=== PATIENT | female | born 1935 | race Caucasian/White ===

== ENCOUNTER 2022-02-10 21:33 | Inpatient (IN) | payer OTHER ==
[~2022-02-10 21:33] MED LIST: AMIODARONE HCL200 MG PO; ASPIR-LOW81 MG PO; ASPIRIN EC81 MG PO; CALCIUM600 MG PO; CENTRUM SILVER1 EAC1 PO; DESYREL 50 MG T50 MG PO; ELIQUIS 2.5 MG2.5 MG PO; FLAGYL500 MG PO; GLUCOPHAGE XR500 MG PO; JANUVIA100 MG PO; LEVAQUIN250 MG PO; LEXAPRO5 MG PO; LISINOPRIL-HCT1 EAC1 PO; LOPRESSOR 25 MG25 MG PO; NORVASC 5 MG TAB5 MG PO; PLAVIX 75 MG TA75 MG PO; PRAVASTATIN SOD10 MG PO; PRINIVIL5 MG PO; TENORMIN 50 MG50 MG PO; THERAGRAN TAB1 EA PO; VITAMIN B-121000 MC3 PO; VITAMIN D35000 UNI1 PO
[2022-02-10 22:05] LABS: HEMOGLOBIN 14.7 gm/dl (12.3-15.3); RED BLOOD COUNT 5.6 M/UL (4.00-5.10); WHITE BLOOD COUNT 26.5 K/UL (4.5-11.0)
[2022-02-10 22:32] LABS: BUN/CREATININE RATIO 21 (0-10)
== END 2022-02-11 01:30 | disposition short-term general hospital (02) | DRG 270 ==
LOC: ER1 21:33 → CDU 22:04
PROVIDERS: Family Medicine; ADMIT Internal Medicine
PROC: 5A02210 Assistance with Cardiac Output using Balloon Pump, Continuous (ICD-10-PCS; principal; 2022-02-10)
PROC: 4A023N7 Measurement of Cardiac Sampling and Pressure, Left Heart, Percutaneous Approach (ICD-10-PCS; 2022-02-10)
PROC: B2111ZZ Fluoroscopy of Multiple Coronary Arteries using Low Osmolar Contrast (ICD-10-PCS; 2022-02-10)
PROC: 0BH17EZ Insertion of Endotracheal Airway into Trachea, Via Natural or Artificial Opening (ICD-10-PCS; 2022-02-10)
PROC: 5A1935Z Respiratory Ventilation, Less than 24 Consecutive Hours (ICD-10-PCS; 2022-02-10)
DX: I21.3 ST elevation (STEMI) myocardial infarction of unspecified site (principal); J96.01 Acute respiratory failure with hypoxia; E78.5 Hyperlipidemia, unspecified; Z20.822 Contact with and (suspected) exposure to COVID-19; I11.0 Hypertensive heart disease with heart failure; I50.9 Heart failure, unspecified; I44.7 Left bundle-branch block, unspecified; E11.9 Type 2 diabetes mellitus without complications; I48.91 Unspecified atrial fibrillation; Z79.4 Long term (current) use of insulin; Z85.3 Personal history of malignant neoplasm of breast; Z86.73 Personal history of transient ischemic attack (TIA), and cerebral infarction without residual deficits; Z82.49 Family history of ischemic heart disease and other diseases of the circulatory system; Z79.01 Long term (current) use of anticoagulants
CPT/HCPCS: 31500; 36600; 71045; 80053; 82550; 82553; 82803; 82962; 83880; 84484; 85025; 85347; 85610; 85730; 93005; 94002; 99285; C1769; C1887; C1894; G0378; J0282; J0330; J0461; J1644; J2250; J2370; J2704; J7040; Q9965; U0002